=== PATIENT | male | born 1990 | race Caucasian/White ===

== ENCOUNTER 2022-07-02 17:27 | Emergency (ER) | payer MEDICAID ==
[~2022-07-02] VITALS: Ht 180.3 cm; Wt 78.0 kg
[2022-07-02 17:32] VITALS: BP 140/92
[2022-07-02] MEDS ORDERED: MORPHINE SULFATE 10 MG/ML CPJ IV ONE (19:45)
[2022-07-02] MEDS ORDERED: HYDR-4001 MT (21:06)
== END 2022-07-02 21:30 | disposition home or self-care (01) ==
LOC: ER 17:27
DX: S52.615A Nondisplaced fracture of left ulna styloid process, initial encounter for closed fracture (principal); S52.592A Other fractures of lower end of left radius, initial encounter for closed fracture; N13.30 Unspecified hydronephrosis; V00.131A Fall from skateboard, initial encounter; Y93.89 Activity, other specified; Y92.488 Other paved roadways as the place of occurrence of the external cause
CPT/HCPCS: 29125; 73090; 73110; 96374; 99284; J2270